=== PATIENT | male | born 1945 | race Caucasian/White ===

== ENCOUNTER 2024-09-15 21:14 | Emergency (ER) | payer OTHER | END 2024-09-16 00:12 | LOC: NAV ERS 21:14 | DX: S05.11XA Contusion of eyeball and orbital tissues, right eye, initial encounter (principal); E66.01 Morbid (severe) obesity due to excess calories; I11.0 Hypertensive heart disease with heart failure; I50.9 Heart failure, unspecified; E11.9 Type 2 diabetes mellitus without complications; W06.XXXA Fall from bed, initial encounter | CPT/HCPCS: 70450; 70486 ==